=== PATIENT | female | born 1970 | race Caucasian/White ===

== ENCOUNTER 2021-01-07 14:25 | Outpatient (CLI) | payer OTHER, SELFPAY ==
--- NOTE | ~2021-01-07 | MM_ITS ---
EXAMINATION: MM screening keaton BI w rose HISTORY: Screening TECHNIQUE: Craniocaudal and mediolateral oblique 3-D tomosynthesis images were obtained and synthetic 2-D images were generated. CAD analysis was submitted and interpreted. COMPARISON: No prior mammogram is available for comparison at this institution. BREAST PARENCHYMAL COMPOSITION: There are scattered areas of fibroglandular density. FINDINGS: There are 2 adjacent masses in the lower inner quadrant of the right breast with associated tissue marker. There is a second tissue marker in the upper central right breast anteriorly. There a re no suspicious masses, calcifications or architectural distortion in the left breast to suggest mal ignancy. IMPRESSION: 1. Right breast masses, lower inner quadrant. 2. Recommend comparison to previous outside mammograms. BI-RADS Category 0: Incomplete: Needs additional imaging evaluation. Reviewed, dictated and finalized at location A.
[2021-01-07 15:01] LABS: Hematocrit 47.4 % (35.0-49.0); Hemoglobin 15.6 g/dL (12.0-15.0); Mean Corpuscular HGB Conc 32.9 g/dL (32.0-36.0); Mean Corpuscular Volume 97.1 fL (78.0-102.0); Mean Platelet Volume 9.6 fl (9.2-11.8); Platelet Count Result 429 K/mm3 (150-420); Red Blood Count 4.88 M/mm3 (4.20-5.40); Red Cell Distribution Width 12.2 % (11.6-14.4); White Blood Count 13.2 K/mm3 (4.8-10.8)
[2021-01-07 16:02] LABS: Alanine Aminotransferase 27 U/L (14-59); Albumin Level 3.9 g/dL (3.4-5.0); Alkaline Phosphatase 148 U/L (46-116); Anion Gap 11 mmol/L (8-16); Aspartate Amino Transferase 13 U/L (15-37); Bilirubin,Total 0.5 mg/dL (0.00-1.00); Blood Urea Nitrogen 7 mg/dL (7-18); Calcium 8.8 mg/dL (8.5-10.1); Carbon Dioxide 25 mmol/L (21-32); Chloride 106 mmol/L (98-108); Cholesterol 154 mg/dL (0-200); Estimated Glomerular Filt Rate > 60; Glucose 93 mg/dL (70-99); HDL Direct 29 mg/dL (40-60); LDL Cholesterol Calculated 92 mg/dL (<130); Osmolality Calculated 292 mOsm/kg (285-295); Potassium 4.5 mmol/L (3.5-5.1); Sodium 142 mmol/L (136-145); Total Protein 7.5 g/dL (6.4-8.2); Triglycerides 163 mg/dL (0-150)
== END 2021-01-07 14:26 | disposition home or self-care (01) ==
PROVIDERS: PCP Family Medicine; Visit Provider Family Medicine
DX: Z00.00 Encounter for general adult medical examination without abnormal findings (principal); Z12.31 Encounter for screening mammogram for malignant neoplasm of breast
CPT/HCPCS: 36415; 77063; 77067; 80053; 80061; 85027

== ENCOUNTER 2021-01-13 10:16 | Outpatient (CLI) | payer OTHER, SELFPAY ==
[2021-01-15 09:46] LABS: TB Skin Test Erythema 0 mm; TB Skin Test Induration 0 mm (0-10); TB Skin Test Interpretation Negative (Negative); TB Skin Test Site Left Arm
== END 2021-01-13 10:17 | disposition home or self-care (01) ==
PROVIDERS: PCP Family Medicine; Visit Provider Family Medicine
DX: Z02.1 Encounter for pre-employment examination (principal)
CPT/HCPCS: 36415; 86580

== ENCOUNTER 2021-04-17 09:21 | Outpatient (CLI) | payer OTHER, SELFPAY ==
--- NOTE | ~2021-04-17 | MMUS_ITS ---
EXAMINATION: MM diagnostic keaton RT w rose, US breast RT limited HISTORY: Right breast mass on screening mammogram TECHNIQUE: Additional 3-D tomosynthesis images of the right breast were performed and synthetic 2-D i mages were generated. CAD analysis was submitted and interpreted. High resolution limited right breas t ultrasound was performed. COMPARISON: 01/07/2021 BREAST PARENCHYMAL COMPOSITION: There are scattered areas of fibroglandular density. FINDINGS: MAMMOGRAPHIC FINDINGS: There is a 2.5 x 1.1 cm oval, circumscribed, equal density, bilobed mass at the 3:00 location the mid dle third of the breast 8 cm from the nipple which contains a biopsy marker. No additional suspicious mass, calcification, or architectural distortion are identified. ULTRASOUND: There is a 1.5 x 0.9 cm oval, circumscribed, parallel, hypoechoic mass with no posterior features or internal vascularity at the 3:00 location 6 cm from the nipple corresponding to the mammographic find ing in question. An internal biopsy marker is noted. IMPRESSION: 1. Right breast mass with previous biopsy change which may be benign. After further discussion with t he patient, the site of prior imaging was determined and will be requested. BI-RADS Category 0: Incomplete: Needs comparison with prior mammograms. Reviewed, dictated and finalized at location A. E ROOM WORKER IMPRESSION: 1. Right breast mass with previous biopsy change which may be benign. After fur ther discussion with the patient, the site of prior imaging was determined and will be requested. BI-RADS Category 0: Incomplete: Needs comparison with prior mammograms.
== END 2021-04-17 09:22 | disposition home or self-care (01) ==
LOC: CHSIMG 09:25
PROVIDERS: PCP Family Medicine; Visit Provider Family Medicine
DX: R92.8 Other abnormal and inconclusive findings on diagnostic imaging of breast (principal)
CPT/HCPCS: 76642; 77061; 77065; G0279

== ENCOUNTER 2021-08-20 11:58 | Outpatient (CLI) | payer OTHER, SELFPAY ==
[2021-08-20 12:19] LABS: Basophils Absolute Auto 0.05 K/mm3 (0.00-0.10); Basophils Percent Auto 0.4 % (0.0-1.0); Eosinophils Absolute Auto 0.27 K/mm3 (0.02-0.50); Eosinophils Percent Auto 2.1 % (1.0-6.0); Hematocrit 43.6 % (35.0-49.0); Hemoglobin 14.5 g/dL (12.0-15.0); Immature Granulocyte Absolute 0.06 K/mm3 (0.00-0.00); Immature Granulocyte Percent A 0.5 % (0.0-0.0); Lymphocytes Absolute Auto 2.91 K/mm3 (1.10-4.50); Lymphocytes Percent Auto 22.1 % (18.0-42.0); Mean Corpuscular HGB Conc 33.3 g/dL (32.0-36.0); Mean Corpuscular Hemoglobin 32.4 pg (27.0-31.0); Mean Corpuscular Volume 97.3 fL (78.0-102.0); Mean Platelet Volume 9.8 fl (9.2-11.8); Monocytes Absolute Auto 0.83 K/mm3 (0.10-0.90); Monocytes Percent Auto 6.3 % (2.0-11.0); Neutrophils Absolute Auto 9.1 K/mm3 (1.7-7.2); Neutrophils Percent Auto 68.6 % (50.0-70.0); Platelet Count Result 390 K/mm3 (150-420); Red Blood Count 4.48 M/mm3 (4.20-5.40); Red Cell Distribution Width 12.1 % (11.6-14.4); White Blood Count 13.2 K/mm3 (4.8-10.8)
[2021-08-20 12:25] LABS: Hemoglobin A1C 4.9 % (<5.7)
[2021-08-20 13:00] LABS: Alanine Aminotransferase 16 U/L (14-59); Albumin Level 3.4 g/dL (3.4-5.0); Alkaline Phosphatase 125 U/L (46-116); Anion Gap 9 mmol/L (8-16); Aspartate Amino Transferase < 10 U/L (15-37); Bilirubin,Total 0.3 mg/dL (0.00-1.00); Blood Urea Nitrogen 9 mg/dL (7-18); Calcium 8.3 mg/dL (8.5-10.1); Carbon Dioxide 23 mmol/L (21-32); Chloride 104 mmol/L (98-108); Cholesterol 151 mg/dL (0-200); Estimated Glomerular Filt Rate > 60; Folic Acid 4.5 ng/mL (8.6->20); Glucose 132 mg/dL (70-99); HDL Direct 31 mg/dL (40-60); LDL Cholesterol Calculated 94 mg/dL (<130); Osmolality Calculated 282 mOsm/kg (285-295); Potassium 3.7 mmol/L (3.5-5.1); Sodium 136 mmol/L (136-145); Total Protein 7.4 g/dL (6.4-8.2); Triglycerides 131 mg/dL (0-150); Vitamin B12 259 pg/mL (193-986)
[2021-08-20 13:12] LABS: Thyroid Stimulating Hormone Reflex 1.52 u/IU/mL (0.36-3.74)
[2021-08-22 14:01] LABS: Vitamin D 25 Hydroxy 14 ng/mL (30-100)
== END 2021-08-20 11:59 | disposition home or self-care (01) ==
LOC: CHSLAB 12:00
PROVIDERS: PCP Family Medicine; Visit Provider Psychiatry & Neurology Psychiatry
DX: F31.81 Bipolar II disorder (principal)
CPT/HCPCS: 36415; 80053; 80061; 82306; 82607; 82746; 83036; 83525; 84443; 85025

== ENCOUNTER 2023-07-29 10:29 | Outpatient (CLI) | payer OTHER, SELFPAY ==
[2023-07-29 10:49] LABS: Basophils Absolute Auto 0.06 K/mm3 (0.00-0.10); Basophils Percent Auto 0.5 % (0.0-1.0); Eosinophils Absolute Auto 0.29 K/mm3 (0.02-0.50); Eosinophils Percent Auto 2.4 % (1.0-6.0); Hematocrit 41.6 % (35.0-49.0); Hemoglobin 13.5 g/dL (12.0-15.0); Immature Granulocyte Absolute 0.09 K/mm3 (0.00-0.00); Immature Granulocyte Percent A 0.7 % (0.0-0.0); Lymphocytes Absolute Auto 2.83 K/mm3 (1.10-4.50); Lymphocytes Percent Auto 22.9 % (18.0-42.0); Mean Corpuscular HGB Conc 32.5 g/dL (32-36); Mean Corpuscular Hemoglobin 30.7 pg (27.0-31.0); Mean Corpuscular Volume 94.5 fL (78.0-102.0); Mean Platelet Volume 9.4 fl (9.2-11.8); Monocytes Absolute Auto 0.94 K/mm3 (0.10-0.90); Monocytes Percent Auto 7.6 % (2.0-11.0); Neutrophils Absolute Auto 8.13 K/mm3 (1.70-7.20); Neutrophils Percent Auto 65.9 % (50.0-70.0); Platelet Count Result 355 K/mm3 (150-420); Red Cell Distribution Width 12.8 % (11.6-14.4); White Blood Count 12.3 K/mm3 (4.8-10.8)
[2023-07-29 11:37] LABS: Alanine Aminotransferase 26 U/L (14-59); Albumin Level 3.7 g/dL (3.4-5.0); Alkaline Phosphatase 137 U/L (46-116); Anion Gap 10 mmol/L (4-12); Aspartate Amino Transferase 15 U/L (15-37); Bilirubin,Total 0.3 mg/dL (0.00-1.00); Blood Urea Nitrogen 10 mg/dL (7-18); Calcium 8.7 mg/dL (8.5-10.1); Carbon Dioxide 26 mmol/L (21-32); Chloride 104 mmol/L (98-108); Cholesterol 177 mg/dL (0-200); Estimated Glomerular Filt Rate > 60; Glucose 90 mg/dL (70-99); HDL Direct 40 mg/dL (40-60); LDL Cholesterol Calculated 104 mg/dL (<130); Osmolality Calculated 289 mOsm/kg (285-295); Sodium 140 mmol/L (136-145); Total Protein 7.4 g/dL (6.4-8.2); Triglycerides 166 mg/dL (0-150)
[2023-07-29 11:40] LABS: Thyroid Stimulating Hormone Reflex 2.56 u/IU/mL (0.36-3.74)
== END 2023-07-29 10:30 | disposition home or self-care (01) ==
PROVIDERS: PCP Family Medicine; Visit Provider Family Medicine
DX: Z00.00 Encounter for general adult medical examination without abnormal findings (principal); E03.9 Hypothyroidism, unspecified
CPT/HCPCS: 36415; 80053; 80061; 84443; 85025

== ENCOUNTER 2023-08-12 11:39 | Outpatient (CLI) | payer OTHER, SELFPAY ==
--- NOTE | ~2023-08-12 | MM_ITS ---
EXAMINATION: MM screening keaton BI w rose HISTORY: Screening mammogram TECHNIQUE: Craniocaudal and mediolateral oblique 3-D tomosynthesis images were obtained and synthetic 2-D images were generated. CAD analysis was submitted and interpreted. COMPARISON: 04/17/2021 diagnostic right mammogram and Limited right breast ultrasound 01/07/2021 bilateral screening mammogram BREAST PARENCHYMAL COMPOSITION: There are scattered areas of fibroglandular density. FINDINGS: 2 biopsy markers are noted on the right; history of prior bilateral benign breast biopsies. A circumscribed mass with biopsy marker in the posterior lower inner quadrant is stable. There is no evidence of suspicious mass, calcification, or architectural distortion to suggest malignancy in eit her breast. There has been no suspicious interval change. IMPRESSION: 1. Benign finding No mammographic evidence of malignancy. 2. Recommend routine screening mammography in one year. BI-RADS Category 2: Benign finding(s). Reviewed, dictated and finalized at location A.
== END 2023-08-12 11:40 | disposition home or self-care (01) ==
LOC: CHSIMG 11:41
PROVIDERS: PCP Family Medicine; Visit Provider Family Medicine
DX: Z12.31 Encounter for screening mammogram for malignant neoplasm of breast (principal)
CPT/HCPCS: 77063; 77067

== ENCOUNTER 2024-02-25 11:38 | Outpatient (CLI) | payer OTHER, SELFPAY ==
[2024-02-25 11:49] LABS: Basophils Absolute Auto 0.06 K/mm3 (0.00-0.10); Basophils Percent Auto 0.5 % (0.0-1.0); Eosinophils Absolute Auto 0.28 K/mm3 (0.02-0.50); Eosinophils Percent Auto 2.4 % (1.0-6.0); Hematocrit 46.2 % (35.0-49.0); Hemoglobin 15.4 g/dL (12.0-15.0); Immature Granulocyte Absolute 0.05 K/mm3 (0.00-0.00); Immature Granulocyte Percent A 0.4 % (0.0-0.0); Lymphocytes Absolute Auto 3.25 K/mm3 (1.10-4.50); Lymphocytes Percent Auto 27.6 % (18.0-42.0); Mean Corpuscular HGB Conc 33.3 g/dL (32-36); Mean Corpuscular Hemoglobin 30.6 pg (27.0-31.0); Mean Corpuscular Volume 91.7 fL (78.0-102.0); Mean Platelet Volume 9.4 fl (9.2-11.8); Monocytes Absolute Auto 0.85 K/mm3 (0.10-0.90); Monocytes Percent Auto 7.2 % (2.0-11.0); Neutrophils Absolute Auto 7.29 K/mm3 (1.70-7.20); Neutrophils Percent Auto 61.9 % (50.0-70.0); Platelet Count Result 387 K/mm3 (150-420); Red Blood Count 5.04 M/mm3 (4.20-5.40); Red Cell Distribution Width 12.4 % (11.6-14.4); White Blood Count 11.8 K/mm3 (4.8-10.8)
[2024-02-25 12:21] LABS: Hemoglobin A1C 5.5 % (<5.7)
[2024-02-25 12:40] LABS: Alanine Aminotransferase 29 U/L (14-59); Albumin Level 3.6 g/dL (3.4-5.0); Alkaline Phosphatase 161 U/L (46-116); Anion Gap 10 mmol/L (4-12); Aspartate Amino Transferase 17 U/L (15-37); Bilirubin,Total 0.5 mg/dL (0.00-1.00); Blood Urea Nitrogen 7 mg/dL (7-18); Calcium 9.4 mg/dL (8.5-10.1); Carbon Dioxide 28 mmol/L (21-32); Chloride 105 mmol/L (98-108); Cholesterol 199 mg/dL (0-200); Estimated Glomerular Filt Rate > 60; Glucose 105 mg/dL (70-99); HDL Direct 37 mg/dL (40-60); LDL Cholesterol Calculated 113 mg/dL (<130); Osmolality Calculated 294 mOsm/kg (285-295); Potassium 4.6 mmol/L (3.5-5.1); Sodium 143 mmol/L (136-145); Total Protein 7.3 g/dL (6.4-8.2); Triglycerides 243 mg/dL (0-150)
[2024-02-25 13:02] LABS: Thyroid Stimulating Hormone Reflex 1.56 u/IU/mL (0.36-3.74)
== END 2024-02-25 11:39 | disposition home or self-care (01) ==
LOC: CHSLAB 11:39
PROVIDERS: PCP Family Medicine; Visit Provider Nurse Practitioner Family
DX: Z00.00 Encounter for general adult medical examination without abnormal findings (principal); G47.26 Circadian rhythm sleep disorder, shift work type; F31.9 Bipolar disorder, unspecified; Z68.29 Body mass index [BMI] 29.0-29.9, adult; Z79.899 Other long term (current) drug therapy
CPT/HCPCS: 36415; 80053; 80061; 83036; 84443; 85025

== ENCOUNTER 2024-08-24 10:55 | Emergency (ER) | payer OTHER, SELFPAY ==
--- NOTE | ~2024-08-24 | XR_ITS ---
XR chest 1V portable 08/24/2024 11:22 Indication: Chest congestion and cough Procedure: AP portable chest Comparison: 09/29/2017 Findings: There has been progression of mild interstitial infiltrates bilaterally. No acute focal pne umonia, pleural effusion or pneumothorax. Heart size normal. Impression: 1: Progression of mild diffuse bilateral peripheral interstitial infiltrates, most likely chronic int erstitial fibrosis. Recommend correlation with high resolution CT chest. Reviewed, dictated and finalized at location A. Impression: 1: Progression of mild diffuse bilateral peripheral interstitial infiltrates, m ost likely chronic interstitial fibrosis. Recommend correlation with high resol ution CT chest.
[2024-08-24 10:56] VITALS: BP 154/69; PULSE 75; RESP 18; TEMP 36.4; O2SAT 93
--- OUTSIDE RECORDS SUMMARY | 2024-08-24 10:58 | XMS_ITS | Patient Health Record ---
Author Organization [facility] As [place] Address [address] [place] [address] Care Team Providers Care Dust Sampler Name Role Phone Santos Fairbanks Unavailable [phone] Migration, Provider Unavailable Unavailable Allergies Allergen (clinical drug ingredient) Drug/Non Drug Allergy documented on EMR Reaction Allergy Type Onset Date Status ketorolac TORADOL (uncoded) Unknown Allergy 01/08/2023 A ctive varenicline Chantix Unknown Drug Allergy 01/08/2023 Acti ve Reason For Referral No Information Medications Medication SIG (Take, Route, Frequency, Duration) Notes Start Date End Date Status Ramelteon 8 MG 1 tablet every night Oral Once a day for 90 days rx send on 06/23/2024 Active Fanapt 4 MG 1 tablet Oral once a day for 90 days rx send on 06/23/2024 Active hydrOXYzine HCl 25 MG 1 tablet Oral Once a day for 30 days Active Escitalopram Oxalate 5 MG 1 tablet Oral Once a day for 90 days rx send on 06/23/2024 Active ProAir HFA 108 (90 Base) MCG/ACT Inhalation 08/19/2023 Active Atorvastatin Calcium 10 MG Oral 08/19/2023 Active hydrOXYzine HCl 25 MG 1 tablet Oral Once a day for 90 days As needed rx send on 06/23/2024 Active Immunizations Vaccine Route Administration Date Status Comme nts Novel [id number], preservative free Unknown 04/10/2015 Administered Novel [id number], preservative free Unknown 01/19/2016 Administered Moderna Covid-19 Vaccine 1st dose Unknown 04/08/2020 Ad ministered Moderna Covid-19 Vaccine 1st dose Unknown 05/06/2020 Ad ministered Moderna Covid-19 Vaccine 1st dose Unknown 05/05/2021 Ad ministered Influenza, seasonal, injecta ble, preservative free, 3 yrs and above Unknown 02/09/2018 Administered Influenza virus vaccine, quadrivalent (IIV4), split virus, 0.25 mL dosage Unknown 02/10/2018 Administered Influenza virus vaccine, quadrivalent (IIV4), split virus, 0.25 mL dosage Unknown 01/30/2020 Administered DTaP Unknown 04/12/2009 Administered DTaP Unknown 09/04/2009 Administered Social History Tobacco Use: Social History Observation Description Date Details (start date - stop date) Current Smoker NA - NA Sex Assigned At : Social History Observation Description Sex Assigned At Female Tobacco Control (Standard) Question Answer Notes Tobacco use: Current smoker How often do you smoke cigarettes? Every day How many cigarettes a day do you smoke? 6-10 How soon after you wake up do you smoke your fir st cigarette? 31-60 minutes Are you interested in quitting? Ready to quit Problems Problem Type SNOMED Code ICD Code Onset Dates Problem Status W/U Status Risk Notes Problem Bipolar II disorder (49307363) Bipolar II disorder (F31.81) 4 Active confirmed Problem Generalized anxiety disorder (86276824) Generalized anxiety disorder (F41.1) 4 Active confirmed Problem Primary insomnia (3584748) Primary insomnia (F51.01) 4 Active confirmed Vital Signs Heart Rate 120 /min 06/23/2024 Height-cm 157.48 cm 06/23/2024 Blood pressure diastolic 84 mm Hg 06/23/2024 Weight-kg 77.11 kg 06/23/2024 Height 62.00 in 06/23/2024 Blood pressure systolic 150 mm Hg 06/23/2024 Weight 170 lbs 06/23/2024 BMI 31.09 kg/m2 06/23/2024 Encounters Encounter Location Date Provider Diagnosis [facility] [employer] [facility] [address] [address] 12/31/2023 Santos Fairbanks Generalized anxiety disorder F41.1 ; Bipolar II disorder F31.81 and Primary insomnia F51.01 [facility] [employer] [facility] [address] [facility] [address] [place] [address] 06/23/2024 Santos Fairbanks Generalized anxiety disorder F41.1 ; Bipolar II disorder F31.81 ; Primary insomnia F51.01 ; Encounter for screening for depression Z13.31 ; Nicotine use Z72.0 ; Encounter for screening for cardiovascular disorders Z13.6 and Dietary counseling and surveillance Z71.3 [facility] [employer] [facility] [address] [place] [address] 08/28/2023 Provider Migration [facility] [employer] [facility] [address] [place] [address] 08/29/2023 Provider Migration Assessments Encounter Date Diagnosis (ICD Code) Assessment Notes Treatment Notes Treatment Clinical Notes Section Notes 06/23/2024 Bipolar II disorder (ICD-10 - F31.81) 06/23/2024 Generalized anxiety disorder (ICD-10 - F41.1) 12/31/2023 Generalized anxiety disorder (ICD-10 - F41.1) Assessment and Plan: 1. Grief and stress related to recent loss of mother and father's cancer diagnosis - Continue current medications: Escitalopram 5 mg daily, Vortioxetine, and Phenapt as prescribed - Encourage patient to seek support from friends, family, or support groups - Monitor patient's mental health and coping mechanisms during follow-up visits - Patient reports coping okay but experiencing worry due to recent events 2. Insomnia - Continue Hydroxyzine as needed for sleep - Encourage patient to practice good sleep hygiene, including establishing a regular sleep schedule, creating a relaxing bedtime routine, and avoiding stimulants before bedtime - Reassess sleep issues during follow-up visits and consider alternative treatments if necessary - Patient reports lying awake for a couple of hours before falling asleep, possibly due to current stressors 3. Fatigue - Monitor patient's fatigue levels during follow-up visits - Encourage patient to maintain a balanced diet, exercise regularly, and practice stress management techniques - Consider further evaluation if fatigue persists or worsens - Patient reports feeling more fatigued when awake 4. Tobacco use - Continue Chantix as prescribed to aid in smoking cessation - Encourage patient to seek additional support for quitting smoking, such as counseling or support groups - Monitor patient's progress in reducing tobacco use during follow-up visits - Patient reports significant progress, now down to about a pack per week Follow-up: - Schedule a follow-up visit in six months to monitor patient's mental health, sleep issues, fatigue, and progress in smoking cessation - Adjust treatment plan as necessary based on patient's progress and needs during follow-up visits 06/23/2024 Primary insomnia (ICD-10 - F51.01) 12/31/2023 Bipolar II disorder (ICD-10 - F31.81) Assessment and Plan: 1. Grief and stress related to recent loss of mother and father's cancer diagnosis - Continue current medications: Escitalopram 5 mg daily, Vortioxetine, and Phenapt as prescribed - Encourage patient to seek support from friends, family, or support groups - Monitor patient's mental health and coping mechanisms during follow-up visits - Patient reports coping okay but experiencing worry due to recent events 2. Insomnia - Continue Hydroxyzine as needed for sleep - Encourage patient to practice good sleep hygiene, including establishing a regular sleep schedule, creating a relaxing bedtime routine, and avoiding stimulants before bedtime - Reassess sleep issues during follow-up visits and consider alternative treatments if necessary - Patient reports lying awake for a couple of hours before falling asleep, possibly due to current stressors 3. Fatigue - Monitor patient's fatigue levels during follow-up visits - Encourage patient to maintain a balanced diet, exercise regularly, and practice stress management techniques - Consider further evaluation if fatigue persists or worsens - Patient reports feeling more fatigued when awake 4. Tobacco use - Continue Chantix as prescribed to aid in smoking cessation - Encourage patient to seek additional support for quitting smoking, such as counseling or support groups - Monitor patient's progress in reducing tobacco use during follow-up visits - Patient reports significant progress, now down to about a pack per week Follow-up: - Schedule a follow-up visit in six months to monitor patient's mental health, sleep issues, fatigue, and progress in smoking cessation - Adjust treatment plan as necessary based on patient's progress and needs during follow-up visits 12/31/2023 Primary insomnia (ICD-10 - F51.01) Assessment and Plan: 1. Grief and stress related to recent loss of mother and father's cancer diagnosis - Continue current medications: Escitalopram 5 mg daily, Vortioxetine, and Phenapt as prescribed - Encourage patient to seek support from friends, family, or support groups - Monitor patient's mental health and coping mechanisms during follow-up visits - Patient reports coping okay but experiencing worry due to recent events 2. Insomnia - Continue Hydroxyzine as needed for sleep - Encourage patient to practice good sleep hygiene, including establishing a regular sleep schedule, creating a relaxing bedtime routine, and avoiding stimulants before bedtime - Reassess sleep issues during follow-up visits and consider alternative treatments if necessary - Patient reports lying awake for a couple of hours before falling asleep, possibly due to current stressors 3. Fatigue - Monitor patient's fatigue levels during follow-up visits - Encourage patient to maintain a balanced diet, exercise regularly, and practice stress management techniques - Consider further evaluation if fatigue persists or worsens - Patient reports feeling more fatigued when awake 4. Tobacco use - Continue Chantix as prescribed to aid in smoking cessation - Encourage patient to seek additional support for quitting smoking, such as counseling or support groups - Monitor patient's progress in reducing tobacco use during follow-up visits - Patient reports significant progress, now down to about a pack per week Follow-up: - Schedule a follow-up visit in six months to monitor patient's mental health, sleep issues, fatigue, and progress in smoking cessation - Adjust treatment plan as necessary based on patient's progress and needs during follow-up visits 06/23/2024 Encounter for screening for depression (ICD-10 - Z13.31) 06/23/2024 Nicotine use (ICD-10 - Z72.0) 06/23/2024 Encounter for screening for cardiovascular disorders (ICD-10 - Z13.6) 06/23/2024 Dietary counseling and surveillance (ICD-10 - Z71.3) 06/23/2024 Romero Zhou presents with ongoing management of psychiatric conditions, reporting increased anxiety upon returning from time away and insufficient sleep due to extra work over the past month. Anxiety Assessment: Patient reports increased anxiety levels upon returning from time away, suggesting situational exacerbation. Current management includes hydroxyzine as needed, which the patient confirms taking. No significant mood or depressive symptoms reported despite feeling tired from work and commuting. Plan: - Continue hydroxyzine 25 mg tablet once daily as needed for anxiety - Encourage stress-reduction techniques during transitions from time away Sleep Insufficiency Assessment: Patient reports not getting enough sleep over the past month due to working extra hours. This has led to feelings of tiredness and being worn down. No manic or hypomanic episodes reported. Plan: - Advise on sleep hygiene and importance of adequate rest - Monitor impact of sleep insufficiency on overall mental health Bipolar Type II Medication Management Assessment: Current medication regimen includes Fanapt (iloperidone) 4 mg daily, escitalopram 5 mg daily, Remeron (mirtazapine) 8 mg, and hydroxyzine 25 mg as needed. Patient reports medication efficacy and does not feel changes are necessary at this time. Plan: - Continue Fanapt 4 mg tablet once daily - Continue escitalopram 5 mg tablet once daily - Continue Remeron 8 mg daily - Maintain current medication regimen with no changes - Prescriptions to be sent to [facility] in [place] The note is transcribed using speech recognition software. It is a reflection of a visit with the patient. It might have some inaccuracy, including medication names and transcribing errors, though efforts have been made to correct them. Plan Of Treatment Next Appt Details Provider Name:Santos Anderson Magdi , 12/22/2024 02:00:00 PM, [address] [address] [facility] [address], [place], [address], Insurance Providers Payer Name Payer Address Payer Phone Subscriber Number Group Number Insured Name Patient Relationship to Insured Coverage Start Date Coverage End Date [facility] [address] [address] [place] [address] [phone] [id number] COUNTS, YURI Spouse - patient is the spouse of the insured Medical (General) History Medical History History ICD Code Problems: Anorexia nervosa, restricting type Bipolar II disorder Generalized anxiety disorder Nicotine dependence with current use Primary insomnia Vitamin D deficiency , Surgical History Surgery Date(Month/Year) Endometrial ablation (56161) Removal of gallbladder (20390) Endometrial ablation (29134) 04/12/1997
--- OUTSIDE RECORDS SUMMARY | 2024-08-24 10:58 | XMS_ITS | Clinical Summary ---
Author Organization [facility] Address [address] [address] Phone Care Team Providers Care Open Die Inspector Name Role Phone Santos Fairbanks MD Unavailable [phone] Mariajose Crook APRN, ANNUAL GIVING OFFICER Unavailable [phone] Allergies Active Allergy Reactions Criticality Noted Date Comments Ketorolac Tromethamine Other (see Comments) veins turned black Medications ergocalciferol (VITAMIN D) 05528 UNIT Capsule Take 1 Cap by mouth once a week. 2 09/13/2017 Active folic acid (FOLVITE) 1 MG Tablet Take 1 Tab by mouth daily. 11 08/20/2017 Active Escitalopram Oxalate 5 MG Tablet Take 1 Tab by mouth daily. 0 04/25/2018 Active FANAPT 4 MG Tablet Take 1 Tab by mouth daily. 1 04/25/2018 Active atorvastatin (LIPITOR) 10 MG Tablet TAKE 1 TABLET BY MOUTH EVERY DAY 90 Tablet 06/21/2020 Active Active Problems Problem Noted Date Diagnosed Date Mechanical low back pain 05/17/2019 Hyperlipidemia 04/22/2015 Anxiety Bipolar 1 disorder Resolved Problems Problem Noted Date Diagnosed Date Resolved Date Calculus of gallbladder with acute on chronic cholecystitis without obstruction 08/28/20152017 Immunizations Immunization Administration Dates Next Due DTAP VACCINE 09/04/2009,04/12/2009 Influenza Vaccine greater than 3 yrs 02/09/2018 Influenza Vaccine, Quadrivalent, PF 01/19/2016,1 Family History Medical History Relation Name Comments Asthma Brother Kidney Cancer Father Lung Cancer Mother No Known Problems Sister Relation Name Status Comments Brother Alive Father Alive Mother Alive Sister Alive Social History Tobacco Use Types Packs/Day Years Used Date Smoking Tobacco: Former Cigarettes 0.5 14 0 12/15/2004 - 12/15/2018 Smokeless Tobacco: Never Tobacco Cessation:Counseling Given: Yes Comments:Eventually Alcohol Use Standard Drinks/Week Comments No 0 (1 standard drink = 0.6 oz pur e alcohol) NEW YEAR'S Comments No Sex and Gender Information Value Date Recorded Sex Assigned at Not on file Legal Sex Female 8:10 PM CDT Gender Identity Not on file Sexual Orientation Not on file Last Filed Vital Signs Vital Sign Reading Time Taken Comments Blood Pressure 112/72 05/17/2019 1:29 PM INSTALLATION MANAGER Pulse 81 05/17/2019 1:29 PM INSTALLATION MANAGER Temperature 36.4 C (97.5 F) 05/17/2019 1:29 PM INSTALLATION MANAGER Respiratory Rate 16 05/17/2019 1:29 PM INSTALLATION MANAGER Oxygen Saturation 96% 05/17/2019 1:29 PM INSTALLATION MANAGER Inhaled Oxygen Concentration - - Weight 74.7 kg (164 lb 11.2 oz) 05/17/2019 1:29 PM INSTALLATION MANAGER Height 157.5 cm (5' 2 ) 05/17/2019 1:29 PM INSTALLATION MANAGER Body Mass Index 30.12 05/17/2019 1:29 PM INSTALLATION MANAGER Plan of Treatment Health Maintenance Due Date Last Done Comments Hepatitis C Virus (HCV) Screening 1970 Hepatitis B Immunization (1 of 3 - 19+ 3-dose series) 10/08/1990 Pap Smear 10/08/1992 Cervical Cancer Screening (CCS) 10/08/2001 HPV/Cotest 10/08/2001 Colonoscopy 10/08/2016 Colorectal Cancer Screening 10/08/2016 Mammogram 08/10/2017 08/10/2016, 05/27/2015 Cologuard 10/08/2021 Immunochemical Fecal Occult Blood 10/08/2021 Pneumococcal Immunization (50+ years) (1 of 1 - PCV) 10/08/2021 Zoster Immunization (1 of 2) 10/08/2021 Influenza Immunization (#1) 12/12/202301/12, 01/19/2016, 04/10/2015 SARS-COV-2 Immunization ( season) 2023 05/05/2021, 05/06/2020, 04/08/2020 Respiratory Syncytial Virus (RSV) Immunization (Adult) (1 - 1-dose 75+ series) 10/08/2046 Discussion re Starting/Frequency of Mammograms Discontinued 08/10/2016, 06/21/2015, 06/13/2015, Additional history exists Meningococcal Immunization (ACWY) Aged Out No longer eligible based on patient's age to complete this topic Rotavirus Immunization Aged Out No lo nger eligible based on patient's age to complete this topic Procedures Procedure Name Priority Date/Time Associated Diagnosis Comments [facility] SCREENING BILATERAL DIGITAL W CAD Routine 08/10/2016 11:17 AM CDT Encounter for screening mammogram for malignant neoplasm of breast from Last 3 Months or Most Recently Relevant to Health Maintenance Results * [facility] SCREENING BILATERAL DIGITAL W CAD (08/10/2016 11:17 AM CDT) Anatomical Region Laterality Modality breast Bilateral Mammography 08/10/2016 11:0 0 AM CDT Narrative 08/10/2016 5:08 PM CDT - [facility] SCREENING BILATERAL DIGITAL W CAD BILATERAL DIGITAL SCREENING MAMMOGRAM WITH CAD WITH MEDIOLATERAL OBLIQUE CRANIOCAUDAL: 08/10/2016 The study was acquired using digital technology and interpreted from soft copy. Current study was also evaluated with ICAD version 7.2. CLINICAL: Routine screening. Patient has no complaints. No personal history of cancer. No family history of breast cancer. COMPARISONS: Comparison is made to exams dated: 06/13/2015, 05/27/2015 [facility], and 07/08/2010 [facility]. BREAST TISSUE:The tissue of both breasts is heterogeneously dense. This may lower the sensitivity of mammography. FINDINGS: There is a benign intramammary node in the right breast. There also are benign masses in the right breast. Additionally, there are biopsy clips in the right breast. No significant masses, calcifications, or other findings are seen in either breast. There has been no significant interval change. IMPRESSION: BI-RAD 2 BENIGN There is no mammographic evidence of malignancy. A 1 year screening mammogram is recommended. The patient has been or will be contacted. The patient will be entered into a reminder system with a target due date of 1 year for her next screening exam. Electronically signed by: Maricel dixon:08/10/2016 12:09:17 Composite Boat Builder: Yvonne GALARZA)(Olga), [facility] letter sent: Normal Exam Reading location: [facility] BI-RADS: 2 Benign Procedure Note Maricel Turner MD - 08/10/2016 - [facility] SCREENING BILATERAL DIGITAL W CAD BILATERAL DIGITAL SCREENING MAMMOGRAM WITH CAD WITH MEDIOLATERAL OBLIQUE CRANIOCAUDAL: 08/10/2016 The study was acquired using digital technology and interpreted from soft copy. Current study was also evaluated with ICAD version 7.2. CLINICAL: Routine screening. Patient has no complaints. No personal history of cancer. No family history of breast cancer. COMPARISONS: Comparison is made to exams dated: 06/13/2015, 05/27/2015 [facility], and 07/08/2010 [facility]. BREAST TISSUE:The tissue of both breasts is heterogeneously dense. This may lower the sensitivity of mammography. FINDINGS: There is a benign intramammary node in the right breast. There also are benign masses in the right breast. Additionally, there are biopsy clips in the right breast. No significant masses, calcifications, or other findings are seen in either breast. There has been no significant interval change. IMPRESSION: BI-RAD 2 BENIGN There is no mammographic evidence of malignancy. A 1 year screening mammogram is recommended. The patient has been or will be contacted. The patient will be entered into a reminder system with a target due date of 1 year for her next screening exam. Electronically signed by: Maricel dailey/valdo:08/10/2016 12:09:17 Composite Boat Builder: Yvonne BENTON (R)(Olga), [facility] letter sent: Normal Exam Reading location: [facility] BI-RADS: 2 Benign us Mariajose Crook EMERGENCY MANAGEMENT SPECIALIST, ANISHA IMG MAMMO ORDERABLES Fin al Result from Last 3 Months or Most Recently Relevant to Health Maintenance Care Teams Open Die Inspector Relationship Specialty Start Date End Date Santos Fairbanks MD [address] [place] [address] Consulting Physician Psychiatry 05/05/18 Mariajose Crook APRN, ANNUAL GIVING OFFICER [address] [place] [address] Nurse Practitioner Obstetrics & Gynecology 05/05/18
[2024-08-24 11:05] VITALS: O2SAT 93
[2024-08-24 11:15] VITALS: PULSE 71; RESP 18; O2SAT 91
[2024-08-24] MEDS: IPRATROPIUM 0.5 MG/ALBUTEROL SULFATE 2.5 MG AMPUL.NEB 3 ML INHALATION (11:18)
[2024-08-24 11:21] VITALS: PULSE 85; RESP 20; O2SAT 98
--- OUTSIDE RECORDS SUMMARY | 2024-08-24 11:41 | XMS_ITS | Clinical Summary ---
Author Organization [facility] Address [address] [address] Phone Care Team Providers Care Senior Training Specialist Name Role Phone Santos Fairbanks MD Unavailable [phone] Mariajose Crook APRN, MORTGAGE PROTECTION SPECIALIST Unavailable [phone] Allergies Active Allergy Reactions Criticality Noted Date Comments Ketorolac Tromethamine Other (see Comments) veins turned black Medications ergocalciferol (VITAMIN D) 38219 UNIT Capsule Take 1 Cap by mouth [...] Comments Blood Pressure 112/72 05/17/2019 1:29 PM OR RN Pulse 81 05/17/2019 1:29 PM OR RN Temperature 36.4 C (97.5 F) 05/17/2019 1:29 PM OR RN Respiratory Rate 16 05/17/2019 1:29 PM OR RN Oxygen Saturation 96% 05/17/2019 1:29 PM OR RN Inhaled Oxygen Concentration - - Weight 74.7 kg (164 lb 11.2 oz) 05/17/2019 1:29 PM OR RN Height 157.5 cm (5' 2 ) 05/17/2019 1:29 PM OR RN Body Mass Index 30.12 05/17/2019 1:29 PM OR RN Plan of Treatment Health Maintenance Due Date [...] Procedure Name Priority Date/Time Associated Diagnosis Comments [facility] SCREENING BILATERAL DIGITAL W CAD Routine 08/10/2016 [...] is made to exams dated: 06/13/2015, 05/27/2015 [facility], and 07/08/2010 [facility]. BREAST TISSUE:The tissue of both breasts is [...] exam. Electronically signed by: Maricel dixon:08/10/2016 12:09:17 Principal Statistical Scientist: Yvonne GALARZA)(Olga), [facility] letter sent: Normal Exam Reading location: [facility] BI-RADS: 2 Benign Procedure Note Maricel [...] is made to exams dated: 06/13/2015, 05/27/2015 [facility], and 07/08/2010 [facility]. BREAST TISSUE:The tissue of both breasts is [...] exam. Electronically signed by: Maricel dailey/valdo:08/10/2016 12:09:17 Principal Statistical Scientist: Yvonne BENTON (R)(Olga), [facility] letter sent: Normal Exam Reading location: [facility] BI-RADS: 2 Benign us Mariajose Crook JUVENILE JUSTICE OFFICER, ANISHA IMG MAMMO ORDERABLES Fin al Result from Last 3 Months or Most Recently Relevant to Health Maintenance Care Teams Senior Training Specialist Relationship Specialty Start Date End Date Santos Fairbanks MD [address] [place] [address] Consulting Physician Psychiatry 05/05/18 Mariajose Crook APRN, MORTGAGE PROTECTION SPECIALIST [address] [place] [address] Nurse Practitioner Obstetrics & Gynecology 05/05/18
[2024-08-24 11:54] LABS: Influenza A QL RT-PCR Negative (Negative); Influenza B QL RT-PCR Negative (Negative); RSV RNA, RT-PCR Negative (Negative); SARS-CoV-2 RNA PCR Negative (Negative)
--- NOTE | 2024-08-24 11:59 | ED_ITS ---
HPI - URI/Sore Throat General Chief Complaint: Upper Respiratory Infection Stated Complaint: cough Time Seen by Provider: 08/24/24 11:04 Source: patient Mode of arrival: ambulatory History of Present Illness HPI Narrative: this is a 53-year-old female with no significant pulmonary abnormalities presents with cough congestion with cough being nonproductive with no fever chills no audible wheezing no chest pain or chest tightness no flank pain no abdominal pain nausea vomiting. MD elicited complaint: cough Onset (ago): day(s) Consistency: constant Severity: moderate Description of mucous: clear Able to tolerate fluids by mouth: Yes Related Data Home Medications Medication Instructions Recorded Confirmed Last Taken Type iloperidone 4 mg tablet (Fanapt) 4 mg PO DAILY 08/11/19 02/15/24 Unknown History ramelteon 8 mg tablet 8 mg PO QHS 01/07/21 02/15/24 Unknown History escitalopram oxalate 5 mg tablet 5 mg PO DAILY 02/15/24 02/15/24 Unknown History hydroxyzine HCl 25 mg tablet 25 mg PO QID 02/15/24 02/15/24 Unknown History Allergies Allergy/AdvReac Type Severity Reaction Status Date / Time ketorolac (Toradol) Allergy Intermediate unknown Verified 02/15/24 11:30 Review of Systems Review of Systems: All systems reviewed & are unremarkable except as noted in HPI and below PMFSH Past Medical History Medical History (Updated 08/24/24 @ 12:02 by Carlito Amador MD) Bipolar disorder with depression Cigarette nicotine dependence Kidney stones Surgical History Surgical History H/O tubal ligation H/O: section History of cholecystectomy History of lung surgery Family History Family History Father COPD (chronic obstructive pulmonary disease) Social History Social History Smoking packs per day: 1 Smoking cigarettes per day: 20.0 Years smoked: 34 Smoking pack-years: 34.00 Smoking status: Current every day smoker Tobacco type: cigarettes Alcohol intake: current Alcohol use details: social Substance use: never Substance use type: does not use Lack of Transportation: No Lack of Food: Never True Current Housing: I Have Housing Concerned About Future Housing: No Difficulty Paying Gas/Electric Bills: No Difficulty Paying for Meds: No Currently Unemployed: No Education: Associate Degree Difficulty w/ Childcare or Family Care: No Living arrangements: with family Additional living arrangements comments: Occupation/Education: occupation 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 Gender identity (if verbalized by the patient): Female Spiritual care concerns: No Exam Const: General: healthy appearing and no acute distress Nutritional Appearance: well nourished Orientation/consciousness: patient oriented x3 Limitations: no limitations HENMT: Head: normal to inspection Eyes: Conjunctivae: conjunctivae normal Neck: Neck: normal visual inspection, no lymphadenopathy and no meningeal signs Chest: Chest palpation & inspection: normal inspection of the chest Resp: Effort & Inspection: normal respiratory effort Auscultation: clear to auscultation bilaterally Cardio: Rate: regular rate Rhythm: regular rhythm GI: GI Palp: Yes Soft to palpation Auscultation: normal bowel sounds Urinary Catheter: Urinary Catheter: patent and draining Back/Spine/Pelvis: Back: no CVA tenderness Skin: General skin exam: normal color Rashes: no rashes Neuro: General: patient oriented x3, moves all extremities and no meningeal signs Extrem: General: normal to inspection and no clubbing, cyanosis or edema Course Course Emergency Course: Patient received breathing treatment and after treatment lungs have improved lung sounds have improved patient feels much better chest x-ray shows some interstitial disease and advised high-resolution CT on outpatient basis. Will send antibiotics and steroid by mouth to her local pharmacy. Vital Signs Vital signs: Vital Signs Temperature 36.4 C 08/24/24 10:56 Pulse Rate 75 08/24/24 10:56 Respiratory Rate 18 08/24/24 10:56 Blood Pressure 154/69 H 08/24/24 10:56 Pulse Oximetry 93 08/24/24 10:56 Oxygen Delivery Room Air 08/24/24 10:56 Temperature 36.4 C 08/24/24 10:56 Pulse Rate 85 08/24/24 11:21 Respiratory Rate 20 08/24/24 11:21 Blood Pressure 154/69 H 08/24/24 10:56 Pulse Oximetry 98 08/24/24 11:21 Oxygen Delivery Room Air 08/24/24 11:05 MDM - URI/Sore Throat Lab Data Labs: Lab Results 08/24/24 Range/Units 11:07 Influenza A (RT-PCR) Negative (Negative) Influenza B (RT-PCR) Negative (Negative) RSV (RT-PCR) Negative (Negative) SARS-CoV-2 RNA (RT-PCR) Negative (Negative) Critical Care Time Critical Care Time Critical Care Time: No Discharge Plan Discharge Clinical Impression: Upper respiratory infection Qualifiers: URI type: unspecified URI Qualified Code(s): J06.9 - Acute upper respiratory infection, unspecified Patient Disposition: Home Condition: Stable Instructions: Antibiotic Form, Upper Respiratory Infection (ED) Additional Instructions: advised patient to take medication as prescribed and to follow with primary care physician within the next 3 to 5 days further evaluation and treatment. Patient Language: Indonesian Prescriptions: New albuterol sulfate 1.25 mg/3 mL solution for nebulization 1.25 mg inhalation Q4H PRN (Reason: shortness of breath or wheezing) Qty: 75 0RF levofloxacin 500 mg tablet 500 mg PO DAILY Qty: 7 0RF prednisone 20 mg tablet 20 mg PO DAILY 5 Days Qty: 5 0RF No Action escitalopram oxalate 5 mg tablet 5 mg PO DAILY hydroxyzine HCl 25 mg tablet 25 mg PO QID Fanapt 4 mg tablet 4 mg PO DAILY ramelteon 8 mg tablet 8 mg PO QHS atorvastatin 10 mg tablet See Rx Instructions .ROUTE .COMPLEX Qty: 90 3RF Dose Instruction: TAKE 1 TABLET BY MOUTH EVERY DAY Rx Instructions: TAKE 1 TABLET BY MOUTH EVERY DAY albuterol sulfate 90 mcg/actuation HFA aerosol inhaler See Rx Instructions .ROUTE .COMPLEX Qty: 8.5 1RF Dose Instruction: INHALE 1 PUFF BY MOUTH EVERY 4 HOURS NEEDED FOR SHORTNESS OF BREATH OR WHEEZING Rx Instructions: INHALE 1 PUFF BY MOUTH EVERY 4 HOURS NEEDED FOR SHORTNESS OF BREATH OR WHEEZING varenicline tartrate [Chantix Continuing Month Box] 1 mg tablet 1 mg PO BID Qty: 180 0RF Follow-up/Referrals: Jose Rafael Sanchez DO [Primary Care Provider] - Time of Disposition: 12:04
[2024-08-24 12:20] VITALS: BP 110/64; PULSE 80; RESP 20; O2SAT 96
== END 2024-08-24 12:20 | disposition home or self-care (01) ==
PROVIDERS: Emergency Provider Emergency Medicine; PCP Family Medicine
DX: J06.9 Acute upper respiratory infection, unspecified (principal); F17.210 Nicotine dependence, cigarettes, uncomplicated; Z20.822 Contact with and (suspected) exposure to COVID-19
CPT/HCPCS: 71045; 87637; 94640; 99283

== ENCOUNTER 2024-09-08 08:16 | Outpatient (CLI) | payer OTHER, SELFPAY ==
--- NOTE | ~2024-09-08 | CT_ITS ---
EXAMINATION: CT chest high resolution wo ne DATE: 09/08/2024 08:27 INDICATION: Abnormal chest x-ray TECHNIQUE: Computed tomography (CT) of the chest was performed without intravenous contrast. The dose -length product was 207.91 mGy-cm. Automated exposure control and iterative reconstruction technique were employed. COMPARISON: Chest x-ray dated 08/24/2024 FINDINGS: Mildly enlarged prevascular space lymph node measuring 7 mm short axis. Heart size normal. No significant pleural or pericardial effusion. There are cholecystectomy clips. Severe emphysema. Th ere are mild interstitial changes in the right lower lobe and lingula, likely mild superimposed chron ic fibrosis. There is a small 3 mm right upper lobe nodule near the pleural surface, image 54, likely benign. Mildly elevated right diaphragm. There is a partially calcified pleural-based nodule in the right lower lobe, likely benign. There are a few small scattered calcified granulomas of the lungs. T here are changes of partial right upper lobectomy. IMPRESSION: 1. Emphysema with mild superimposed chronic interstitial lung disease. 2: Mild mediastinal lymphadenopathy, likely reactive. 3: Small pulmonary nodules measuring 3 mm or less, likely benign. Consider follow-up low dose CT ches t in 12 months. Reviewed, dictated and finalized at location A. IMPRESSION: 1. Emphysema with mild superimposed chronic interstitial lung disease. 2: Mild mediastinal lymphadenopathy, likely reactive. 3: Small pulmonary nodules measuring 3 mm or less, likely benign. Consider foll ow-up low dose CT chest in 12 months.
--- OUTSIDE RECORDS SUMMARY | 2024-09-08 08:23 | XMS_ITS | Patient Health Record ---
Author Organization [facility] [employer] [facility] Address [address] [place] [address] Care Team Providers Care Ager Operator Name Role Phone Santos Fairbanks Unavailable [phone] Allergies Allergen (clinical drug ingredient) Drug/Non Drug [...] Route Administration Date Status Comme nts Novel [id number], preservative free Unknown 04/10/2015 Administered Novel [id number], preservative free Unknown 01/19/2016 Administered Moderna Covid-19 [...] Status Risk Notes Problem Bipolar II disorder (50611293) Bipolar II disorder (F31.81) 4 Active confirmed Problem Generalized anxiety disorder (62967247) Generalized anxiety disorder (F41.1) 4 Active confirmed Problem Primary insomnia (3152855) Primary insomnia (F51.01) 4 Active confirmed Vital Signs Heart Rate 120 /min 06/23/2024 Height-cm 157.48 cm 06/23/2024 Blood pressure diastolic 84 mm Hg 06/23/2024 Weight-kg 77.11 kg 06/23/2024 Height 62.00 in 06/23/2024 Blood pressure systolic 150 mm Hg 06/23/2024 Weight 170 lbs 06/23/2024 BMI 31.09 kg/m2 06/23/2024 Encounters Encounter Location Date Provider Diagnosis [facility] [employer] [facility] [address] [facility] [address] [place] [address] 12/31/2023 Santos Fairbanks Generalized anxiety disorder F41.1 ; Bipolar II disorder F31.81 and Primary insomnia F51.01 [facility] [employer] [facility] [address] [place] [address] 06/23/2024 Santos Fairbanks Generalized anxiety disorder F41.1 ; Bipolar II disorder F31.81 ; Primary insomnia F51.01 ; Encounter for screening for depression Z13.31 ; Nicotine use Z72.0 ; Encounter for screening for cardiovascular disorders Z13.6 and Dietary counseling and surveillance Z71.3 Assessments Encounter Date Diagnosis (ICD Code) Assessment [...] changes - Prescriptions to be sent to [facility] in [place] The note is transcribed using speech recognition software. It is a reflection of a visit with the patient. It might have some inaccuracy, including medication names and transcribing errors, though efforts have been made to correct them. Plan Of Treatment Next Appt Details Provider Name:Santos Anderson Magdi , 12/22/2024 02:00:00 PM, [address], [facility] [address], [place], [address], Insurance Providers Payer Name Payer Address Payer Phone Subscriber Number Group Number Insured Name Patient Relationship to Insured Coverage Start Date Coverage End Date [facility] [address] [address] [place] [address] [id number] COUNTS, YURI Spouse - patient is the spouse of the insured Medical (General) History Medical History History ICD Code Problems: Anorexia nervosa, restricting type Bipolar II disorder Generalized anxiety disorder Nicotine dependence with current use Primary insomnia Vitamin D deficiency , Surgical History Surgery Date(Month/Year) Endometrial ablation (82142) Removal of gallbladder (79219) Endometrial ablation (57717) 04/12/1997
--- OUTSIDE RECORDS SUMMARY | 2024-09-08 08:23 | XMS_ITS | Clinical Summary ---
Author Organization [facility] Address [address] [address] Phone Care Team Providers Care Bag Loader Machine Operator Name Role Phone Santos Fairbanks MD Unavailable [phone] Mariajose Crook APRN, SMALL WIND ENERGY INSTALLER Unavailable [phone] Allergies Active Allergy Reactions Criticality Noted Date Comments Ketorolac Tromethamine Other (see Comments) veins turned black Medications ergocalciferol (VITAMIN D) 08557 UNIT Capsule Take 1 Cap by mouth [...] Comments Blood Pressure 112/72 05/17/2019 1:29 PM GEOSPATIAL TECHNICIAN Pulse 81 05/17/2019 1:29 PM GEOSPATIAL TECHNICIAN Temperature 36.4 C (97.5 F) 05/17/2019 1:29 PM GEOSPATIAL TECHNICIAN Respiratory Rate 16 05/17/2019 1:29 PM GEOSPATIAL TECHNICIAN Oxygen Saturation 96% 05/17/2019 1:29 PM GEOSPATIAL TECHNICIAN Inhaled Oxygen Concentration - - Weight 74.7 kg (164 lb 11.2 oz) 05/17/2019 1:29 PM GEOSPATIAL TECHNICIAN Height 157.5 cm (5' 2) 05/17/2019 1:29 PM GEOSPATIAL TECHNICIAN Body Mass Index 30.12 05/17/2019 1:29 PM GEOSPATIAL TECHNICIAN Plan of Treatment Health Maintenance Due Date [...] Procedure Name Priority Date/Time Associated Diagnosis Comments [facility] SCREENING BILATERAL DIGITAL W CAD Routine [...] is made to exams dated: 06/13/2015, 05/27/2015 [facility], and 07/08/2010 [facility]. BREAST TISSUE:The tissue of both breasts is [...] exam. Electronically signed by: Maricel dixon:08/10/2016 12:09:17 Mechanic Sound Technician: Yvonne GALARZA)(Olga), [facility] letter sent: Normal Exam Reading location: [facility] BI-RADS: 2 Benign Procedure Note Maricel Turner [...] is made to exams dated: 06/13/2015, 05/27/2015 [facility], and 07/08/2010 [facility]. BREAST TISSUE:The tissue of both breasts is [...] exam. Electronically signed by: Maricel dailey/valdo:08/10/2016 12:09:17 Mechanic Sound Technician: Yvonne BENTON (R)(Olga), [facility] letter sent: Normal Exam Reading location: [facility] BI-RADS: 2 Benign us Mariajose Crook DIRECTOR OF REHABILITATION, ANISHA IMG MAMMO ORDERABLES Fin al Result from Last 3 Months or Most Recently Relevant to Health Maintenance Care Teams Bag Loader Machine Operator Relationship Specialty Start Date End Date Santos Fairbanks MD [address] [place] [address] Consulting Physician Psychiatry 05/05/18 Mariajose Crook APRN, SMALL WIND ENERGY INSTALLER [address] [place] [address] Nurse Practitioner Obstetrics & Gynecology 05/05/18
== END 2024-09-08 08:17 | disposition home or self-care (01) ==
LOC: CHSIMG 08:18
PROVIDERS: PCP Family Medicine; Visit Provider Family Medicine
DX: F17.210 Nicotine dependence, cigarettes, uncomplicated (principal); J84.10 Pulmonary fibrosis, unspecified; J43.9 Emphysema, unspecified; R59.0 Localized enlarged lymph nodes; R91.8 Other nonspecific abnormal finding of lung field
CPT/HCPCS: 71250

== ENCOUNTER 2025-01-24 09:43 | Outpatient (CLI) | payer OTHER, SELFPAY ==
--- OUTSIDE RECORDS SUMMARY | 2025-01-24 11:12 | XMS_ITS | Clinical Summary ---
Author Organization [facility] Address [address] [address] Phone Care Team Providers Care Grizzly Worker Name Role Phone Santos Fairbanks MD Unavailable [phone] Mariajose Crook APRN, HORSE AND WAGON DRIVER Unavailable [phone] Allergies Active Allergy Reactions Criticality Noted Date Comments Ketorolac Tromethamine Other (see Comments) veins turned black Medications ergocalciferol (VITAMIN D) 28036 UNIT Capsule Take 1 Cap by mouth [...] Comments Blood Pressure 112/72 05/17/2019 1:29 PM INDUSTRIAL SERVICE TECHNICIAN Pulse 81 05/17/2019 1:29 PM INDUSTRIAL SERVICE TECHNICIAN Temperature 36.4 C (97.5 F) 05/17/2019 1:29 PM INDUSTRIAL SERVICE TECHNICIAN Respiratory Rate 16 05/17/2019 1:29 PM INDUSTRIAL SERVICE TECHNICIAN Oxygen Saturation 96% 05/17/2019 1:29 PM INDUSTRIAL SERVICE TECHNICIAN Inhaled Oxygen Concentration - - Weight 74.7 kg (164 lb 11.2 oz) 05/17/2019 1:29 PM INDUSTRIAL SERVICE TECHNICIAN Height 157.5 cm (5' 2) 05/17/2019 1:29 PM INDUSTRIAL SERVICE TECHNICIAN Body Mass Index 30.12 05/17/2019 1:29 PM INDUSTRIAL SERVICE TECHNICIAN Plan of Treatment Health Maintenance Due Date Last Done Comments Hepatitis C Virus (HCV) Screening 1970 Hepatitis B Immunization (1 of 3 - 19+ 3-dose series) 10/08/1990 Pap Smear 10/08/1992 Cervical Cancer Screening (CCS) 10/08/2001 HPV/Cotest 10/08/2001 Cologuard 10/08/2016 Colonoscopy 10/08/2016 Colorectal Cancer Screening 10/08/2016 Immunochemical Fecal Occult Blood 10/08/2016 Mammogram 08/10/2017 08/10/2016, 05/27/2015 Pneumococcal Immunization (50+ years) (1 of 1 - PCV) 10/08/2021 Zoster Immunization (1 of 2) 10/08/2021 Influenza Immunization (#1) 12/11/202401/12, 01/19/2016, 04/10/2015 SARS-COV-2 Immunization (2024- season) 2024 05/05/2021, 05/06/2020, 04/08/2020 Respiratory Syncytial Virus (RSV) Immunization (Adult) (1 - 1-dose 75+ series) 10/08/2046 Discussion re Starting/Frequency of Mammograms Discontinued 08/10/2016, 06/21/2015, 06/13/2015, Additional history exists Human Papillomavirus (HPV) Immunization Aged Out No longer eligible based on patient's age to complete this topic Meningococcal Immunization (ACWY) Aged Out No longer eligible based on patient's age to complete this topic Rotavirus Immunization Aged Out No lo nger eligible based on patient's age to complete this topic Procedures Procedure Name Priority Date/Time Associated Diagnosis Comments [facility] SCREENING BILATERAL DIGITAL W CAD [...] is made to exams dated: 06/13/2015, 05/27/2015 [facility], and 07/08/2010 [facility]. BREAST TISSUE:The tissue of both breasts is [...] next screening exam. Electronically signed by: Maricel dailey/penrad:08/10/2016 12:09:17 Windows System Admin: Yvonne BENTON(Verito)(M), [facility] letter sent: Normal Exam Reading location: MON BI-RADS: 2 Benign Procedure Note Maricel Turner [...] is made to exams dated: 06/13/2015, 05/27/2015 [facility], and 07/08/2010 [facility]. BREAST TISSUE:The tissue of both breasts is [...] next screening exam. Electronically signed by: Maricel dailey/penrad:08/10/2016 12:09:17 Windows System Admin: Yvonne BENTON(R)(M), [facility] letter sent: Normal Exam Reading location: MON BI-RADS: 2 Benign us Mariajose Crook APRN, HORSE AND WAGON DRIVER IMG MAMMO ORDERABLES Fin al Result from Last 3 Months or Most Recently Relevant to Health Maintenance Care Teams Grizzly Worker Relationship Specialty Start Date End Date Santos Fairbanks MD [address] [place] [address] Consulting Physician Psychiatry 05/05/18 Mariajose Crook APRN, HORSE AND WAGON DRIVER [address] [place] [address] Nurse Practitioner Obstetrics & Gynecology 05/05/18
--- OUTSIDE RECORDS SUMMARY | 2025-01-24 11:12 | XMS_ITS | Patient Health Record ---
Author Organization [facility] [employer] [facility] Address [address] [place] [address] Care Team Providers Care Captain Assistant Name Role Phone Santos Fairbanks Unavailable [phone] Allergies Allergen (clinical drug ingredient) Drug/Non Drug Allergy documented on EMR Reaction Allergy Type Onset Date Status ketorolac TORADOL (uncoded) Unknown Allergy 01/08/2023 A ctive varenicline Chantix Unknown Drug Allergy 01/08/2023 Acti ve Reason For Referral No Information Medications Medication SIG (Take, Route, Frequency, Duration) Notes Start Date End Date Status Ramelteon 8 MG Tablet 1 tablet every nig ht Oral Once a day; Duration: 90 days 12/22/2024 06/20/2025 Active Escitalopram Oxalate 5 MG Tablet 1 tablet Oral Once a day; Duration: 90 days 12/22/2024 Active hydrOXYzine HCl 25 MG Tablet 1 tablet Oral Once a day; Duration: 90 days As needed 12/22/2024 Active Fanapt 6 MG Tablet 1 tablet Oral once a day; Duration: 90 days 12/22/2024 Active Atorvastatin Calcium 10 MG Tablet Oral 08/19/2023 Active hydrOXYzine HCl 25 MG Tablet TAKE 1 TABLET ORALLY ONCE A DAY NEEDED 90 DAYS; Duration: 30 Active ProAir HFA 108 (90 Base) MCG/ACT Aerosol Solution Inhalation 08/19/2023 Act abhi Immunizations Vaccine Route Administration Date Status Comme nts Novel [id number], preservative free Unknown 04/10/2015 Administered Novel [id number], preservative free Unknown 01/19/2016 Administered Moderna Covid-19 [...] History Observation Description Sex Assigned At Female Social History Tobacco Use: Social Info Question Answer Notes Tobacco Control (Standard) Tobacco use: Current smoker How often do you smoke cigarettes? Every day How many cigarettes a day do you smoke? 6-10 How soon after you wake up do you smoke your first cigarette? 31-60 minutes Are you interested in quitting? 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 Problems Problem Type SNOMED Code ICD Code Onset Dates Problem Status W/U Status Risk Notes Problem Bipolar II disorder (80111274) Bipolar II disorder (F31.81) 4 Active confirmed Problem Generalized anxiety disorder (64434319) Generalized anxiety disorder (F41.1) 4 Active confirmed Problem Primary insomnia (3154873) Primary insomnia (F51.01) 4 Active confirmed Problem Pulmonary fibrosis (88759707) Pulmonary fibrosis, unspecified (J84.10) Active confirmed Vital Signs Heart Rate 114 /min 12/22/2024 Height-cm 157.48 cm 12/22/2024 Blood pressure diastolic 71 mm Hg 12/22/2024 Weight-kg 75.66 kg 12/22/2024 Height 62.00 in 12/22/2024 Blood pressure systolic 114 mm Hg 12/22/2024 Weight 166.8 lbs 12/22/2024 BMI 30.5 kg/m2 12/22/2024 Encounters Encounter Location Date Provider Diagnosis [facility] [employer] [facility] [address] [place] [address] 06/23/2024 Santos Fairbanks Generalized anxiety disorder F41.1 ; Bipolar II disorder F31.81 ; Primary insomnia F51.01 ; Encounter for screening for depression Z13.31 ; Nicotine use Z72.0 ; Encounter for screening for cardiovascular disorders Z13.6 and Dietary counseling and surveillance Z71.3 [facility] [employer] [facility] [address] [place] [address] 12/22/2024 Santos Fairbanks Bipolar II disorder F31.81 ; Generalized anxiety disorder F41.1 ; Primary insomnia F51.01 and Pulmonary fibrosis, unspecified J84.10 Assessments Encounter Date Diagnosis (ICD Code) Assessment Notes Treatment Notes Treatment Clinical Notes Section Notes 06/23/2024 Bipolar II disorder (ICD-10 - F31.81) 06/23/2024 Generalized anxiety disorder (ICD-10 - F41.1) 12/22/2024 Bipolar II disorder (ICD-10 - F31.81) increase fanapt 6 mg po qd 12/22/2024 Generalized anxiety disorder (ICD-10 - F41.1) 12/22/2024 Primary insomnia (ICD-10 - F51.01) Patient reports persistent sleep difficulties, particularly after travel and work. Sleep schedule is disrupted by work and travel commitments, contributing to fatigue. - Discussed importance of rest and sleep hygiene. 06/23/2024 Primary insomnia (ICD-10 - F51.01) 12/22/2024 Pulmonary fibrosis, unspecified (ICD-10 - J84.10) Patient reports significant frustration and aggravation with scheduling pulmonology appointments and pulmonary function tests due to contract work schedule. Expressed intent to forgo some appointments and tests because of logistical barriers and frequent travel. Recent attempts to arrange PFT and at-home sleep study were complicated by communication issues with pulmonology office and pharmacy. Patient is considering alternative locations for tests and plans to review options after rest. - Discussed options for scheduling pulmonary function tests at alternative locations. - Encouraged patient to review available options for testing after rest. 06/23/2024 Encounter for screening for depression (ICD-10 [...] changes - Prescriptions to be sent to [facility] in [place] The note is transcribed using speech recognition software. It is a reflection of a visit with the patient. It might have some inaccuracy, including medication names and transcribing errors, though efforts have been made to correct them. Plan Of Treatment Next Appt Details Provider Name:Santos Fairbanks , 06/15/2025 01:00:00 PM, [address], [address], [place], [address], Insurance Providers Payer Name Payer Address Payer Phone Subscriber Number Group Number Insured Name Patient Relationship to Insured Coverage Start Date Coverage End Date [facility] [address] [address] [place] [address] [id number] ABELARDO, YURI Spouse - patient is the spouse of the insured Medical (General) History Medical History History ICD Code Problems: Anorexia nervosa, restricting type Bipolar II disorder Generalized anxiety disorder Nicotine dependence with current use Primary insomnia Vitamin D deficiency , Pulmonary fibrosis Surgical History Surgery Date(Month/Year) Removal of gallbladder (41797) Endometrial ablation (62952) Endometrial ablation (53414) 04/12/1997
--- NOTE | 2025-01-26 14:03 | WPDPFTINT ---
PFT Procedure Performed PFT Procedure Performed Spirometry with Pre/Post Bronchodilator Plethysmography (Lung Vol) Diffusing Cap (DLCO) Flow Vol Loop PFT Interpretation DOS: 01/24/2025 REQUESTING: Bette Doan MD REASON FOR TESTING: shortness of breath, pulmonary fibrosis PULMONARY FUNCTION TESTS Results are reliable and reproducible. Repeatability of spirometry FEV1 maneuver pre and post bronchodilator is Grade A. Pasquale Cotton Dust reference equations were used. Spirometry: The pre-bronchodilator FEV1 is 1.46 L, 61% predicted, reduced. The pre-bronchodilator FVC is 2.98 L, 103%, normal. The FEV1/FVC ratio is 49%, reduced consistent with airflow obstruction. After bronchodilator, the FEV1 is 1.49 L, 63%, +2%. The post-bronchodilator FVC is 2.92 L, 101%, -2%. The FEV1/FVC ratio is 51%. Lung volumes: The total lung capacity is 4.08 L, 90%, normal. The functional residual capacity is 2.28 L, 98%, normal. The residual volume is 1.11 L, 69%, normal. The RV/TLC is 27%. Airway resistance is increased. Diffusion: DLCO is 8.4, 38%, severely reduced. The DLCO/VA is 2.28, 57%, moderate correction for alveolar volume. Flow volume loop: The flow volume loop coving of the expiratory limb. IMPRESSION: This study shows a moderate obstructive ventilatory impairment without response to bronchodilator, normal lung volumes, severe diffusion impairment which partially corrects for alveolar volume. Lack of response to bronchodilator should not preclude use if clinically indicated. No prior studies to compare. Bette Doan MD
--- NOTE | 2025-01-26 14:09 | WPDSIXMINUTE ---
Six Minute Walk Procedure Procedure Performed Pulmonary Stress Test (6 min walk) Six Minute Walk Six Minute Walk: DATE OF SERVICE: 01/24/2025 REQUESTING: Bette Doan MD REASON FOR TESTING: shortness of breath, pulmonary fibrosis SIX MINUTE WALK This test was conducted per ATS guidelines. The initial saturation was 94%, and initial heart rate was 89 beats per minute. The patient walked without stopping, completing 335 m / 1100 ft. The saturation at the end of testing was 90%, and the heart rate was 107 beats per minute. the lowest saturation recorded was 89% at 4 minutes. The highest pulse was 108 beats per minute at 5 minutes. The Rachel score for fatigue and dyspnea was 0 initially, and 1 at the end of testing. IMPRESSION: This is a normal study. The patient did not require supplemental oxygen with exertion. Bette Doan MD
== END 2025-01-24 09:44 | disposition home or self-care (01) ==
LOC: CHSCARD 09:47
PROVIDERS: PCP Family Medicine; Visit Provider Internal Medicine Critical Care Medicine
DX: R06.09 Other forms of dyspnea (principal); J84.10 Pulmonary fibrosis, unspecified
CPT/HCPCS: 94060; 94726; 94729

== ENCOUNTER 2025-02-08 08:55 | Outpatient (CLI) | payer OTHER, SELFPAY ==
--- OUTSIDE RECORDS SUMMARY | 2025-02-08 09:18 | XMS_ITS | Patient Health Record ---
Author Organization [facility] [employer] [facility] Address [address] [place] [address] Care Team Providers Care Refueling Ramp Attendant Name Role Phone Santos Fairbanks Unavailable [phone] Allergies Allergen (clinical drug ingredient) Drug/Non Drug [...] Vaccine Route Administration Date Status Comme nts DTaP Unknown 04/12/2009 Administered DTaP Unknown 09/04/2009 Administered Influenza virus vaccine, quadrivalent (IIV4), split virus, 0.25 mL dosage Unknown 02/10/2018 Administered Influenza virus vaccine, quadrivalent (IIV4), split virus, 0.25 mL dosage Unknown 01/30/2020 Administered Influenza, seasonal, injecta ble, preservative free, 3 yrs and above Unknown 02/09/2018 Administered Moderna Covid-19 Vaccine 1st dose Unknown 04/08/2020 Ad ministered Moderna Covid-19 Vaccine 1st dose Unknown 05/06/2020 Ad ministered Moderna Covid-19 Vaccine 1st dose Unknown 05/05/2021 Ad ministered Novel [id number], preservative free Unknown 04/10/2015 Administered Novel Hhqrsrpsw-M1H7-54, preservative free Unknown 01/19/2016 Administered Social History Tobacco Use: Social History [...] Status Risk Notes Problem Bipolar II disorder (86536243) Bipolar II disorder (F31.81) 4 Active confirmed Problem Generalized anxiety disorder (85916680) Generalized anxiety disorder (F41.1) 4 Active confirmed Problem Primary insomnia (2904488) Primary insomnia (F51.01) 4 Active confirmed Problem Pulmonary fibrosis (43620909) Pulmonary fibrosis, unspecified (J84.10) Active confirmed Vital Signs Heart Rate 114 /min 12/22/2024 Height-cm 157.48 cm 12/22/2024 Blood pressure diastolic 71 mm Hg 12/22/2024 Weight-kg 75.66 kg 12/22/2024 Height 62.00 in 12/22/2024 Blood pressure systolic 114 mm Hg 12/22/2024 Weight 166.8 lbs 12/22/2024 BMI 30.5 kg/m2 12/22/2024 Encounters Encounter Location Date Provider Diagnosis [facility] [address] [place] [address] 06/23/2024 Santos Fairbanks Generalized anxiety disorder F41.1 ; Bipolar II disorder F31.81 ; Primary insomnia F51.01 ; Encounter for screening for depression Z13.31 ; Nicotine use Z72.0 ; Encounter for screening for cardiovascular disorders Z13.6 and Dietary counseling and surveillance Z71.3 [facility] [address] [place] [address] 12/22/2024 Santos Fairbanks Bipolar II disorder F31.81 ; Generalized anxiety disorder F41.1 ; Primary insomnia F51.01 and Pulmonary fibrosis, unspecified J84.10 Assessments Encounter Date Diagnosis (ICD Code) Assessment Notes Treatment Notes Treatment Clinical Notes Section Notes 12/22/2024 Bipolar II disorder (ICD-10 - F31.81) increase fanapt 6 mg po qd 12/22/2024 Generalized anxiety disorder (ICD-10 - F41.1) 06/23/2024 Bipolar II disorder (ICD-10 - F31.81) 06/23/2024 Generalized anxiety disorder (ICD-10 - F41.1) 06/23/2024 Primary insomnia (ICD-10 - F51.01) 12/22/2024 Primary insomnia (ICD-10 - F51.01) Patient reports persistent sleep difficulties, particularly after travel and work. Sleep schedule is disrupted by work and travel commitments, contributing to fatigue. - Discussed importance of rest and sleep hygiene. 12/22/2024 Pulmonary fibrosis, unspecified (ICD-10 - J84.10) [...] changes - Prescriptions to be sent to [facility] in [place] The note is transcribed using speech recognition software. It is a reflection of a visit with the patient. It might have some inaccuracy, including medication names and transcribing errors, though efforts have been made to correct them. Plan Of Treatment Next Appt Details Provider Name:Santos Fairbanks , 06/15/2025 01:00:00 PM, [address], [address], [place], [address], Insurance Providers Payer Name Payer Address Payer Phone Subscriber Number Group Number Insured Name Patient Relationship to Insured Coverage Start Date Coverage End Date [facility] [address] [address] [place] [address] [phone] [id number] ABELARDO, YURI Spouse - patient is the spouse of the insured Medical (General) History Medical History History ICD Code Problems: Anorexia nervosa, restricting type Bipolar II disorder Generalized anxiety disorder Nicotine dependence with current use Primary insomnia Vitamin D deficiency , Pulmonary fibrosis Surgical History Surgery Date(Month/Year) Removal of gallbladder (27791) Endometrial ablation (02814) Endometrial ablation (71301) 04/12/1997
--- OUTSIDE RECORDS SUMMARY | 2025-02-08 09:18 | XMS_ITS | Clinical Summary ---
Author Organization [facility] Address [address] [address] Phone Care Team Providers Care Terminal Worker Name Role Phone Santos Fairbanks MD Unavailable [phone] Mariajose Crook APRN, TOBACCO STRIPPING MACHINE OPERATOR Unavailable [phone] Allergies Active Allergy Reactions Criticality Noted Date Comments Ketorolac Tromethamine Other (see Comments) veins turned black Medications ergocalciferol (VITAMIN D) 91003 UNIT Capsule Take 1 Cap by mouth [...] Comments Blood Pressure 112/72 05/17/2019 1:29 PM LAW OFFICE ASSISTANT Pulse 81 05/17/2019 1:29 PM LAW OFFICE ASSISTANT Temperature 36.4 C (97.5 F) 05/17/2019 1:29 PM LAW OFFICE ASSISTANT Respiratory Rate 16 05/17/2019 1:29 PM LAW OFFICE ASSISTANT Oxygen Saturation 96% 05/17/2019 1:29 PM LAW OFFICE ASSISTANT Inhaled Oxygen Concentration - - Weight 74.7 kg (164 lb 11.2 oz) 05/17/2019 1:29 PM LAW OFFICE ASSISTANT Height 157.5 cm (5' 2) 05/17/2019 1:29 PM LAW OFFICE ASSISTANT Body Mass Index 30.12 05/17/2019 1:29 PM LAW OFFICE ASSISTANT Plan of Treatment Health Maintenance Due Date [...] Name Priority Date/Time Associated Diagnosis Comments [facility] SCREENING BILATERAL DIGITAL W CAD Routine 08/10/2016 11:17 AM CDT Encounter for screening mammogram for malignant neoplasm of breast from Last 3 Months or Most Recently Relevant to Health Maintenance Results * [facility] SCREENING BILATERAL DIGITAL W CAD (08/10/2016 11:17 [...] is made to exams dated: 06/13/2015, 05/27/2015 [facility], and 07/08/2010 [facility]. BREAST TISSUE:The tissue of both breasts is [...] exam. Electronically signed by: Maricel dailey/penrad:08/10/2016 12:09:17 Gas Plant Worker: Yvonne BENTON(Verito)(M), [facility] letter sent: Normal Exam Reading [...] is made to exams dated: 06/13/2015, 05/27/2015 [facility], and 07/08/2010 [facility]. BREAST TISSUE:The tissue of both breasts is [...] exam. Electronically signed by: Maricel dailey/penrad:08/10/2016 12:09:17 Gas Plant Worker: Yvonne BENTON(R)(M), [facility] letter sent: Normal Exam Reading location: MON BI-RADS: 2 Benign us Mariajose Crook APRN, TOBACCO STRIPPING MACHINE OPERATOR IMG MAMMO ORDERABLES Fin al Result from Last 3 Months or Most Recently Relevant to Health Maintenance Care Teams Terminal Worker Relationship Specialty Start Date End Date Santos Fairbanks MD [address] [place] [address] Consulting Physician Psychiatry 05/05/18 Mariajose Crook APRN, TOBACCO STRIPPING MACHINE OPERATOR [address] [place] [address] Nurse Practitioner Obstetrics & Gynecology 05/05/18
[2025-02-12 13:08] LABS: ANA by IFA Rfx Titer/Pattern Negative (.)
== END 2025-02-08 08:56 | disposition home or self-care (01) ==
LOC: CHSLAB 08:56
PROVIDERS: PCP Family Medicine; Visit Provider Internal Medicine Critical Care Medicine
DX: J84.10 Pulmonary fibrosis, unspecified (principal); D89.89 Other specified disorders involving the immune mechanism, not elsewhere classified
CPT/HCPCS: 36415; 86038; 86331; 86430; 86606; 86609; 86671